=== PATIENT | female | born 1975 | race Caucasian/White ===

== ENCOUNTER 2018-02-23 10:23 | Emergency (ER) | payer SELFPAY ==
[~2018-02-23] VITALS: Ht 160 cm; Wt 91.7 kg
[~2018-02-23 10:23] MED LIST: ADVAIR 500/501 DISK IH; ALBUTEROL; AUGMENTIN875 MG PO; CELEXA20 MG PO; COMBIVENT RESPIM4 GM IH; COMBIVENT200 INHALA; CYCLOBENZAPRINE5 MG; DELTASONE20 M1 PO; FLOVENT 22120 INHALA; PAXIL30 MG PO; PREDNISONE50 MG PO; PRENATAL VITAM1 EAC3 PO; PRIMATENE MIST15 M1 IH; ROBITUSSIN AC,T10 ML PO; SUMATRIPTAN SUC50 MG; VENTOLIN HFA18 GM IH; ZITHROMAX Z-PA250 MG PO
[2018-02-23 11:11] LABS: HEMATOCRIT 44.4 % (36.0-46.0); HEMOGLOBIN 14.7 G/DL (11.9-15.5); MCH 30.1 PG (29.0-34.0); MCHC 33.1 G/DL (30.0-36.0); MCV 90.8 FL (83-99); PLATELET COUNT 411 K/uL (156-360); RBC DIS.WIDTH-CV 15.7 % (11.8-14.6); RBC DIS.WIDTH-SD 52.4 % (39-53); RED BLOOD COUNT 4.89 M/uL (3.80-5.20); WHITE BLOOD COUNT 8.1 K/uL (4.1-10.2)
[2018-02-23 11:48] LABS: CHLORIDE 104 MEQ/L (99-109); CREATININE 0.5 MG/DL (0.6-1.3); GFR ESTIMATE (CALCULATED) > 59 mL/min/; GLUCOSE 100 mg/dL (70-99); POTASSIUM 4.3 MEQ/L (3.7-5.4); SODIUM 137 MEQ/L (136-147); UREA NITROGEN (BUN) 10 mg/dL (9-23)
[2018-02-23] MEDS ORDERED: PREDNISONE20 MG PO (13:04)
[2018-02-23 14:50] VITALS: BP 145/89
== END 2018-02-23 14:51 | disposition home or self-care (01) ==
LOC: EME 10:23
PROVIDERS: Physician Assistant
DX: J06.9 Acute upper respiratory infection, unspecified (principal); J44.1 Chronic obstructive pulmonary disease with (acute) exacerbation; F32.9 Major depressive disorder, single episode, unspecified; F41.9 Anxiety disorder, unspecified; F17.200 Nicotine dependence, unspecified, uncomplicated
CPT/HCPCS: 71046; 80048; 85027; 87502; 94640; 94640 76; 99281; 99284; J2930

== ENCOUNTER 2018-02-26 20:15 | Emergency (ER) | payer SELFPAY ==
[~2018-02-26] VITALS: Ht 160 cm; Wt 91.9 kg
[~2018-02-26 20:15] MED LIST changes: +PREDNISONE20 MG PO
[2018-02-26 21:11] LABS: HEMATOCRIT 42.2 % (36.0-46.0); HEMOGLOBIN 14.2 G/DL (11.9-15.5); MCH 30.5 PG (29.0-34.0); MCHC 33.6 G/DL (30.0-36.0); MCV 90.8 FL (83-99); PLATELET COUNT 399 K/uL (156-360); RBC DIS.WIDTH-CV 15.8 % (11.8-14.6); RBC DIS.WIDTH-SD 51.9 % (39-53); RED BLOOD COUNT 4.65 M/uL (3.80-5.20); WHITE BLOOD COUNT 12.2 K/uL (4.1-10.2)
[2018-02-26 21:27] LABS: ALBUMIN 3.6 g/dL (3.2-4.8); CHLORIDE 101 mEq/L (99-109); POTASSIUM 3.9 mEq/L (3.7-5.4)
[2018-02-26 21:28] LABS: SODIUM 136 mEq/L (136-147)
[2018-02-26 21:30] LABS: D-DIMER ELISA < 150.00 ng/mLDDU (<230); GLUCOSE 206 mg/dL (70-99); TOTAL PROTEIN 6.8 g/dL (6.4-8.3)
[2018-02-26 21:32] LABS: TOTAL BILIRUBIN 0.3 mg/dL (0.0-1.0)
[2018-02-26 21:33] LABS: ALKALINE PHOSPHATASE 54 IU/L (3-129); CREATININE 0.7 mg/dL (0.6-1.3); GFR ESTIMATE (CALCULATED) > 59 mL/min/
[2018-02-26 21:35] LABS: AST (GOT) 14 IU/L (2-34); UREA NITROGEN (BUN) 17 mg/dL (9-23)
[2018-02-26 21:36] LABS: ALT (GPT) 23 IU/L (3-49)
[2018-02-26] MEDS ORDERED: AZITHROMYCIN250 MG1 PO (22:41)
[2018-02-26] MEDS ORDERED: PREDNISONE20 MG PO (22:41)
[2018-02-26 22:58] VITALS: BP 114/75
== END 2018-02-26 22:58 | disposition home or self-care (01) ==
LOC: EME 20:15
PROVIDERS: Physician Assistant
DX: J44.1 Chronic obstructive pulmonary disease with (acute) exacerbation (principal); F32.9 Major depressive disorder, single episode, unspecified; F41.9 Anxiety disorder, unspecified; F17.200 Nicotine dependence, unspecified, uncomplicated
CPT/HCPCS: 71046; 80053; 85027; 85379; 94640; 99281; 99283; J7512